=== PATIENT | male | born 1970 | race Caucasian/White ===

== ENCOUNTER 2016-07-15 19:56 | Emergency (ER) | payer OTHER | END 2016-07-15 22:18 | disposition home or self-care (01) | LOC: ER 19:56 | DX: J20.9 Acute bronchitis, unspecified (principal); J44.9 Chronic obstructive pulmonary disease, unspecified; I25.2 Old myocardial infarction; E11.9 Type 2 diabetes mellitus without complications; I25.10 Atherosclerotic heart disease of native coronary artery without angina pectoris; M79.1 Myalgia; Z91.041 Radiographic dye allergy status | CPT/HCPCS: 99282 ==

== ENCOUNTER 2016-07-28 21:38 | Emergency (ER) | payer OTHER | END 2016-07-29 01:47 | disposition home or self-care (01) | LOC: ER 21:38 | DX: M54.5 Low back pain (principal); G89.29 Other chronic pain; E11.9 Type 2 diabetes mellitus without complications; J44.9 Chronic obstructive pulmonary disease, unspecified; Z98.890 Other specified postprocedural states; F17.220 Nicotine dependence, chewing tobacco, uncomplicated; Z91.041 Radiographic dye allergy status | CPT/HCPCS: 96372; 99282-25 ==

== ENCOUNTER 2016-08-09 00:21 | Emergency (ER) | payer OTHER ==
[2016-08-09 00:57] LABS: HEMATOCRIT 39.5 % (40-51); HEMOGLOBIN 13.7 g/dL (13.7-17.5); MEAN CORPUSCULAR HEMOGLOBIN 32.1 pg (27.0-33.0); MEAN CORPUSCULAR HGB CONC 34.7 g/dL (32.0-36.0); MEAN CORPUSCULAR VOLUME 92.7 fL (79-92); RED BLOOD COUNT 4.26 x10_6/uL (4.6-6.1); WHITE BLOOD COUNT 13.3 x10_3/uL (4.2-9.1)
[2016-08-09 00:58] LABS: BASO # 0.1 10_X3_uL (0.0-0.1); BASO % 0.5 % (0.2-1.2); EOS # 0.3 10_X3_uL (0.0-0.5); EOS % 2.4 % (0.8-7.0); GRAN # 7.2 10_X3_uL (1.8-5.4); GRAN % 53.8 % (34.0-67.9); LYMPH # 4.3 10_X3_uL (1.3-3.6); LYMPH % 32.6 % (21.8-53.1); MEAN PLATELET VOLUME 10.3 fl (7.5-11.5); MONO # 1.4 10_X3_uL (0.3-0.8); MONO % 10.7 % (5.3-12.2); PLATELET COUNT 234 x10_3/uL (163-337); RED CELL DISTRIBUTION WIDTH 14.6 % (11.6-14.4)
[2016-08-09 01:02] LABS: ALBUMIN 3.8 gm/dL (3.4-5.0); ALKALINE PHOSPHATASE 66 U/L (50-136); ALT/SGPT 9 U/L (7.53-40.17); AST/SGOT 11 U/L (6.66-35.34); BILIRUBIN,TOTAL 0.19 mg/dL (0.0-1.0); BLOOD UREA NITROGEN 14 mg/dL (7-18); CALCIUM 8.7 mg/dL (8.7-10.7); CARBON DIOXIDE 26 mmol/L (21-32); CREATININE 0.7 mg/dL (0.6-1.3); GLUCOSE,RANDOM 134 mg/dL (70-99); POTASSIUM 3.8 mmol/L (3.5-5.1); SODIUM 139 mmol/L (136-145); TOTAL PROTEIN 7.2 gm/dL (6.4-8.2)
== END 2016-08-09 01:58 | disposition home or self-care (01) ==
LOC: ER 00:21
PROVIDERS: General Practice
DX: I44.0 Atrioventricular block, first degree (principal); I51.7 Cardiomegaly; R07.9 Chest pain, unspecified; R05 Cough; R91.1 Solitary pulmonary nodule; R06.02 Shortness of breath; I10 Essential (primary) hypertension; J44.9 Chronic obstructive pulmonary disease, unspecified; I25.10 Atherosclerotic heart disease of native coronary artery without angina pectoris; Z95.5 Presence of coronary angioplasty implant and graft; F17.210 Nicotine dependence, cigarettes, uncomplicated; Z91.041 Radiographic dye allergy status; Z79.899 Other long term (current) drug therapy; Z79.02 Long term (current) use of antithrombotics/antiplatelets; Z79.82 Long term (current) use of aspirin
CPT/HCPCS: 36415; 71010; 71250; 80053; 80307; 83605; 83880; 85025; 87040; 93005; 99070; 99284-25; G0480

== ENCOUNTER 2016-09-23 14:33 | Emergency (ER) | payer OTHER | END 2016-09-23 18:53 | disposition home or self-care (01) | LOC: ER 14:33 | DX: M76.52 Patellar tendinitis, left knee (principal); M25.562 Pain in left knee; I10 Essential (primary) hypertension; I25.10 Atherosclerotic heart disease of native coronary artery without angina pectoris; Z95.5 Presence of coronary angioplasty implant and graft; Z91.041 Radiographic dye allergy status | CPT/HCPCS: 73564; 99070; 99283 ==